=== PATIENT | male | born 1980 | race Caucasian/White ===

== ENCOUNTER 2020-06-27 18:07 | Emergency (ER) | payer MEDICARE, SELFPAY | END 2020-06-27 22:16 | disposition left against medical advice (07) | PROVIDERS: Emergency Provider Emergency Medicine | DX: R10.9 Unspecified abdominal pain (principal); K59.00 Constipation, unspecified | CPT/HCPCS: 99281 ==

== ENCOUNTER → 2020-11-09 15:30 | Outpatient (BNVA) | payer MEDICARE, SELFPAY | PROVIDERS: PCP Internal Medicine; Visit Provider Surgery | DX: K43.2 Incisional hernia without obstruction or gangrene (principal); Z79.899 Other long term (current) drug therapy | CPT/HCPCS: 99212 ==

== ENCOUNTER 2020-11-15 15:15 | Outpatient (REF) | payer MEDICARE, SELFPAY ==
--- NOTE | ~2020-11-15 | CT_ITS ---
EXAMINATION: CT ABDOMEN AND PELVIS WITHOUT CONTRAST CLINICAL INFORMATION: Incisional hernia. COMPARISON: Multiple priors, most recent CT abdomen/pelvis dated 02/15/2020 TECHNIQUE: Multidetector volumetric imaging was performed from the superior aspect of the liver through the pubic symphysis. Sagittal and coronal reformatted images were obtained on the technologist's workstation. This CT examination was performed using dose optimization techniques as appropriate, variously including the following: *Automated exposure control *Adjustment of mA and/or kV according to patient size (this includes techniques or standardized protocols for targeted exams where dose is matched to indication/reason for exam; i.e. extremities or head) *Use of iterative reconstruction technique DLP: 612 mGy-cm FINDINGS: LUNG BASES: The visualized lung bases are unremarkable. LIVER, GALLBLADDER, AND BILIARY TREE: The liver is normal in size, shape, and attenuation. No focal hepatic lesion or biliary ductal dilatation is present. The gallbladder is nondistended with no evidence of radiopaque gallstones, gallbladder wall thickening, or obvious pericholecystic inflammatory changes. PANCREAS: Unremarkable. SPLEEN: Unremarkable. ADRENAL GLANDS: Unremarkable. KIDNEYS AND URETERS: The kidneys are normal in size, shape, and attenuation. No hydronephrosis, hydroureter, or calculi seen. No perinephric stranding. BLADDER: Nondistended and unremarkable. GASTROINTESTINAL TRACT: Redemonstration of a rectosigmoid anastomosis with prominent stool adjacent to the anastomosis, unchanged. The remaining sigmoid colon and rectum is nondistended with mild wall prominence, likely due to underdistention. No significant fat stranding. An early infectious or inflammatory process is thought less likely, however, cannot be entirely excluded. Unremarkable appendix. PERITONEAL CAVITY: No intra-abdominal free air or free fluid. No intra-abdominal mass or organized fluid collection/abscess formation. ABDOMINAL WALL: Postsurgical changes redemonstrated along the left abdominal wall consistent with prior hernia repair. Redemonstration of a small, fat-containing hernia to the left of midline in the supraumbilical region with a neck measuring approximately 0.8 cm in ML dimension, similar when compared to the prior examination. No associated bowel loops or inflammatory/ischemic change. Inferior and to the left of the umbilicus, there is redemonstration of a hernia with a neck measuring 4.2 cm in ML dimension (previously 3.2 cm). The hernia contains nonobstructed small bowel loops. No evidence of inflammation or ischemia. Along the inferolateral aspect of the left abdominal wall, there is a spigelian hernia with a neck measuring up to 5.2 cm in ML dimension (previously 3.5 cm). The hernia is again noted to contain nonobstructed loops of small bowel. No associated inflammatory/ischemic change. LYMPH NODES: Normal. VASCULAR: Unremarkable. PELVIC VISCERA: The prostate and seminal vesicles are unremarkable. OSSEOUS STRUCTURES: Unremarkable. CT/CT abdomen pelvis wo con IMPRESSION: 1. Redemonstration of postsurgical changes along the left abdominal wall consistent with prior hernia repair. Large left paramedian hernia just inferior to the umbilicus again noted, increased in size when compared to the prior examination. Additionally, a more inferolateral spigelian hernia is redemonstrated, increased in size when compared to the prior examination. The hernias are again noted to contain nonobstructed small bowel loops. No associated inflammatory or ischemic change. 2. Additional small, fat-containing hernia just superior and to the left of the umbilicus, similar when compared to the prior examination. No associated bowel loops or infectious/ischemic change. 3. Redemonstration of a rectosigmoid anastomosis with prominent stool adjacent to the anastomosis, unchanged. The rectum and sigmoid are nondistended with circumferential wall prominence, likely due to underdistention. An early infectious or inflammatory process is thought less likely, however, cannot be entirely excluded.
== END 2020-11-15 15:16 | disposition home or self-care (01) ==
LOC: HO.CT 15:15
PROVIDERS: Visit Provider Surgery
DX: K43.2 Incisional hernia without obstruction or gangrene (principal)
CPT/HCPCS: 74176

== ENCOUNTER 2020-11-21 07:14 | Inpatient (IN) | payer MEDICARE, MEDICAID, SELFPAY ==
--- NOTE | 2020-11-20 10:38 | HO.ANESPROP2 ---
Documented by User: Funmilayo Holder 11/20/20 10:40 HPI - Anesthesia Eval Consult details Narrative: 40yo M for Multiple Incisional Hernia Repairs with Mesh methadone daily PMFSH Active Problems Active Problems: All Active Problems (Updated 11/09/20 @ 16:18 by Obed Granado MD) Incisional hernia (Acute) Past Medical History Medical History Anxiety GERD (gastroesophageal reflux disease) Incisional hernia Smoker Family History Family History Father Lung cancer Mother Hypertension Surgical History Surgical History History of colostomy (2006) History of colostomy reversal (2010) History of hernia repair (2008) History of hernia surgery History of incisional hernia repair (10/2018) History of rectal abscess (2006) History of rectal surgery Social History Social History Alcohol intake: never Patient Tobacco Use Status: Current everyday Tobacco user Tobacco use type: Cigarette Cigarette Packs Per Day: 1 Cigarettes Per Day: 20.0 Use of substances other than those prescribed or required for medical reasons: Yes Substance Use Frequency: Weekly Are you DNR?: No Advance Directives: No Advance Directives Information Provided: No Meds Allergies Allergy/AdvReac Type Severity Reaction Status Date / Time naproxen [NAPROXEN] AdvReac Unknown NAUSEA Verified 11/21/20 07:42 From ULTRAM AdvReac Unknown NAUSEA & Uncoded 03/02/20 17:07 VOMITING; UNCONTROLLABLE SHAKES Home Medications Medication Instructions Recorded Confirmed Last Taken Type methadone 10 mg tablet 80 mg PO DAILY tab 11/09/20 11/10/20 Unknown History Exam Exam Date and Time: November 20, 2020 1038 Assessment and Plan Assessment Anesthesia Assessment: Chart Reviewed Documented by User: Sharonda Davila 11/21/20 09:25 PMFSH Past Medical History Medical History Anxiety GERD (gastroesophageal reflux disease) Incisional hernia Smoker Family History Family History Father Lung cancer Mother Hypertension Surgical History Surgical History History of colostomy (2006) History of colostomy reversal (2010) History of hernia repair (2008) History of hernia surgery History of incisional hernia repair (10/2018) History of rectal abscess (2006) History of rectal surgery Social History Social History Alcohol intake: never Patient Tobacco Use Status: Current everyday Tobacco user Tobacco use type: Cigarette Cigarette Packs Per Day: 1 Cigarettes Per Day: 20.0 Use of substances other than those prescribed or required for medical reasons: Yes Substance Use Frequency: Weekly Are you DNR?: No Advance Directives: No Advance Directives Information Provided: No Meds Allergies Allergy/AdvReac Type Severity Reaction Status Date / Time naproxen [NAPROXEN] AdvReac Unknown NAUSEA Verified 11/21/20 07:42 From ULTRAM AdvReac Unknown NAUSEA & Uncoded 03/02/20 17:07 VOMITING; UNCONTROLLABLE SHAKES Home Medications Medication Instructions Recorded Confirmed Last Taken Type methadone 10 mg tablet 80 mg PO DAILY tab 11/09/20 11/10/20 Unknown History Exam Airway Mallampati Class: III TM Dist: >3cm Neck ROM: Limited Denture: Upper and Lower Assessment and Plan Assessment Anesthesia Assessment: Anesthesia Plan Discussed and Chart Reviewed Final Anesthetic Review NPO: Yes ASA Class: II Final Preanesthetic Review: No Changes in Pt Med Stat, Meds/Allgs Chart Reviewed, Consent Obtained/Reviewed and Anes Risks/Benef Reviewed Patient Risk: Intermediate Procedure Risk: Intermediate Assessment/Block/Sedation in SS: Assess/Block/Sedation-SS Anesthetic Plan Anesthetic Plan: GA Disposition: Standard PACU
[2020-11-21] VITALS (27 sets, daily range): BP systolic 98–163; BP diastolic 56–85; PULSE 49–77; RESP 16–20; TEMP 36.4–36.8; O2SAT 91–99; BMI 32.6
[2020-11-21 07:40] LABS: Hematocrit 42.7 % (42-52); Mean Corpuscular HGB Conc 32.8 g/dl (31.0-36.0); Mean Corpuscular Hemoglobin 29.4 pg (27.0-33.0); Mean Corpuscular Volume 89.5 fL (80-98); Mean Platelet Volume 9.3 fL (9.4-12.4); Platelet Count 290 X10*3/uL (160-400); Red Blood Count 4.77 X10*6/uL (4.60-5.80); Red Cell Distribution Width 12.8 % (11.0-16.0); White Blood Count 9.6 X10*3/uL (4.8-10.8)
[2020-11-21] MEDS: Lactated Ringers 1,000 ML 100 ML IVCONT (08:02)
[2020-11-21 08:05] LABS: Anion Gap 11 (12-20); Blood Urea Nitrogen 9 mg/dL (9-16); Calcium 9.1 mg/dL (8.4-10.2); Carbon Dioxide 28 mmol/L (22-29); Chloride 105 mmol/L (96-108); Creatinine Clr Calc Pharmacy 141.8; Estimated Glomerular Filt Rate > 60; Glucose Fasting 104 mg/dL (60-99); Potassium 4.5 mmol/L (3.3-5.1); Sodium 139 mmol/L (135-145)
--- NOTE | 2020-11-21 08:32 | MHC.SHP ---
Pre-Procedural Eval Section B Chief Complaint: S/P MULTIPLE INCISIONAL HERNIA REPAIRS W/MESH Allergies: Allergies Allergy/AdvReac Type Severity Reaction Status Date / Time naproxen [NAPROXEN] AdvReac Unknown NAUSEA Verified 11/21/20 07:42 From ULTRAM AdvReac Unknown NAUSEA & Uncoded 03/02/20 17:07 VOMITING; UNCONTROLLABLE SHAKES Plan I have reviewed the history and physical and performed a pertinent physical examination on my patient. No changes have occurred unless specified.
--- NOTE | 2020-11-21 10:58 | PM.OP ---
Brief Operative Note Date of Service: 11/21/20 Pre-op diagnosis: multiple hernias, abdominal wall Post-op diagnosis: same (incisional hernia, supraumbilical hernia) Procedure: repair of incisional hernia with large Ventralex mesh, repair of supraumbilical hernia Implants: mesh Surgeon: Obed Granado MD Anesthesia: GETA Was an General Production Laborer used for this Procedure?: No Estimated blood loss (mL): 50 Pathology: other (sac) Condition: stable Disposition: PACU
--- NOTE | 2020-11-21 10:59 | W.PM.OPN ---
Operative Note Operative Note Date of Service: 11/21/20 Narrative: Preop diagnosis: Multiple wall hernias Postop diagnosis: Incisional hernia and supraumbilical hernia Procedure: Repair of incisional hernia with large Ventralex mesh, repair of supraumbilical hernia, extensive lysis of adhesions Surgeon: Obed Granado MD No conventions assistant The patient is a 30-year-old male who had previously undergone a diverting loop colostomy for necrotizing fascitis of the perianal area in the distant past. He developed a hernia on the stoma site which had been repaired with a before. He now has another hernia on the laparotomy incision just to the left of the midline. His CAT scan had shown this hernia on the midline with loops of small bowel, along with a supraumbilical hernia that was fat containing. There seemed to be a hernia as well on the old colostomy site but review of this had shown that the fascia appeared intact. Physical exam showed the hernia just above the midline but I could not palpate for the hernia on the old colostomy site. In view of his symptoms regards to the hernia on midline, he wanted to proceed for repair. He understood the technique of repair with mesh and was aware of the risks, benefits and alternatives. He was brought so the operating room and placed supine on table under general anesthesia via endotracheal tube. A Brito catheter was inserted. The abdomen was prepped and draped in the usual sterile fashion. A surgical time-out was done. The patient received cefazolin 2 g IV preoperatively. I made a transverse incision on the skin overlying the large hernia just to the left of the midline using a blade number 10 and this was carried down through the full-thickness of skin and subcutaneous fat with electrocautery. I continued to gently dissect through the thick subcutaneous fat until I was able to visualize what appeared to be hernia sac. The hernia sac was gently dissected off of subcutaneous layer using electrocautery as well as Metzenbaum scissors down to the fascia. Eventually, I was able to see the fascial defect. Part of the hernia sac and was sent as specimen. I continued to define the hernia but there was note of large amounts of adhesions with small bowel loops on the fascial edge inferiorly. I had to carefully dissect this with Metzenbaum scissors. Some bowel loops are also markedly adherent to the sac and we had to do a lot of dissection as well to carefully release this. Eventually was able to clearly define the fascial defect which measured about 4 cm in diameter. I was able to grasp this gently with Saul clamps. I viewed the underside of the fascial defect. I did do some lysis of adhesions of some bowel loops on the underside. Eventually I was able to clearly have a good dissection with wide margins without adherent bowel loops. I palpated for the other side laterally where the CAT scan is suggested a hernia on the old stoma site. However, palpation revealed no hernia and I was able to palpate from the underside as well. There was some thinning suggestive of diastasis but there was no discrete defect. The previous repair of his colostomy site laterally was intact as well as I could not clearly feel any fascial defect. There were no bowel loops that could be felt as well. I carefully undermined the subcutaneous layer to make sure that we were examining the correct area of the fascia laterally. Furthermore I was viewing the images on the CT scan in real-time to be able to colon for that we were on the right area and could see that even on the CT scan, the fascia appeared intact. I therefore at this point felt that we did not need to open up the fascia or do further repair of this area on the old stoma site laterally. I positioned a large Ventralex mesh under the fascial defect on the incisional hernia just off of the midline to the left. This was flattened and I used transfascial sutures with Prolene 2-0 on the Prolene side of the mesh on 4 quadrants. Once these were positioned, I tightened all 4 transfascial sutures to there flatten the mesh. I then proceeded to close the fascia with Maxon 1 running stitch making sure that we were not catching bowel loops within this stitches. I then proceeded to irrigate. I reapposed the thick subcutaneous layer with Dexon 3-0 interrupted sutures. Skin closure was achieved with skin musa. I then proceeded to repair the hernia on the supraumbilical area. I made a short incision on the skin using a blade 15. This was carried down through the full-thickness of skin and subcutaneous fat. I then dissected subcutaneously until was able to clearly define the fascia. I proceeded to palpate and visualize periodically until was able to visualize the entire hernia. This was fat containing. I sharply dissected this off of the fascial layer until was able to clearly reduce this. The hernial defect on the supraumbilical area was about 1 cm in size. Therefore I closed this with a figure-eight Maxon 1 stitch. I irrigated again. I closed this incision with skin musa. I infiltrated all incisions with Marcaine 0.5% for postop analgesia. Dressings were applied and the procedure was completed The patient tolerated the procedure well. There were no complications noted. Initial and final counts of sponges and instruments were correct. Estimated blood loss about 50 cc The patient was extubated without difficulty and transferred to the recovery room with stable vital signs.
[2020-11-21] MEDS: HYDROmorphone HCl 0.5 MG/0.5 ML SYRINGE IVPUSH ×5 (11:10→22:37)
[2020-11-21 11:28] LABS: COVID-19 Test Negative (Negative); IDNOW Serial# 9DD0AD1C
[2020-11-21] MEDS: oxyCODONE HCl Immed Release 5 MG TABLET 10 MG PO (12:00)
[2020-11-21] MEDS: fentaNYL citrate/PF 100 MCG/2 ML VIAL 50 MCG IVPUSH ×2 (14:15→15:04)
--- NOTE | 2020-11-21 16:39 | PM.EVENT ---
Event Note Date of Service: 11/21/20 Event Note: seen postop underwent repair of multiple hernias earlier looks comfortable he says he has good pain control stable VS abd soft cont. pain mgt diet as tolerated plan lexus Brito in am updated
[2020-11-21] MEDS: Lactated Ringers 1,000 ML 80 ML IVCONT (16:47)
[2020-11-21] MEDS: 0.9 % Sodium Chloride Flush 3 ML SYRINGE IVFLUSH (16:47)
--- NOTE | 2020-11-21 17:31 | PC.NURSE ---
patient stated that he takes Methadone 80 mg by mouth daily .Pt reported that he goes to [facility] [place]. Pt stated that he received the dose today.Pt also reported that he uses the heroin few times per mouth ,thalast time he used it was 3 days ago
[2020-11-22] MEDS: HYDROmorphone HCl 0.5 MG/0.5 ML SYRINGE IVPUSH ×4 (03:15→13:25)
[2020-11-22] MEDS: Lactated Ringers 1,000 ML 100 ML IVCONT (03:37)
[2020-11-22 07:40] VITALS: BP 105/59; PULSE 63; RESP 15; TEMP 36.5; O2SAT 94
[2020-11-22] MEDS: 0.9 % Sodium Chloride Flush 3 ML SYRINGE IVFLUSH (09:22)
[2020-11-22 09:25] VITALS: O2SAT 95
--- NOTE | 2020-11-22 10:13 | MHC.CM.PN ---
NURSE SWEATER DESIGNER NOTE ELECTRONIC MEDICAL RECORD REVIVED MET WITH PATIENT AND WITH HIS PERMISSION HIS FINANCE REMAINED PRESENT IN THE ROOM DURING THIS ASSESSMENT , .PATIENT REPORTS THAT HE LIVES WITH HIS FINANCE IN [facility] , HE IS CURRENTLY UNEMPLOYED AND HAS BEEN ASSIGNED DR DEVIN WILSON HIS PCP BUT HAS NOT SEEN HIM IN OVER A YEAR AND IS INTERESTED IN OBTAINING A NEW PCP , THE [facility] LISTING GIVEN TO HIM, PATIENT REPORTS HE HAS A HEALTH CARE PROXY NAMING HIS FINANCE HIS AGENT , REQUESTED A COPY BE MAILED INTO THE [facility] TO HAVE ON FILE , PATIENT REPORTS THAT HE USES HEROIN [facility]ALY, AND ATTENDS THE [facility] FOR HIS METHADONE INDEPENDENT IN ALL ADLS AND MOBILITY DISCHARGE PLAN HOME SERVICES PCP DR GUTIERREZ INFO GIVEN ON OBTIAING A NEW PCP [facility] LISTING OF DOCTORS NAMES, ADDRESS PHONE NUMBERS. SELF RESUMPTION OF HIS METHADONE CLINIC AT THE [address] HE WILL CONTINUE TO WORK OUT ON GETTING A NEW THEARPUIST FOR MENTAL HEALTH COUNSELING OFFERED REFERRAL TO CARE TEAM AND DECLINED TRANSPORTATION FAMILY MEDICARE IMM COMPLETED
--- NOTE | 2020-11-22 10:34 | MHC.RECOVSUP ---
? Reason for consult:Continuity of care o Current location: [facility]- o Identified substance use concern: Heroin - Support ? Intervention: o MAT started or to be started o Community resources provided o Harm reduction discussion ? Plan: o Patient to follow up with [facility] after discharge ? Additional information: Patient to be discharged today, patient already using MAR in the form of methadone, referred patient to [facility] and gave him community resources.
--- NOTE | 2020-11-22 10:48 | PM.PNGS ---
Subjective Subjective Date of Service: 11/22/20 Interval history: feels great good pain control tolerating diet good GI function Physical Exam Vital Signs: Vital Signs: Last Vital Signs Temp 97.7 F 11/22/20 07:40 Pulse 63 11/22/20 07:40 Resp 15 11/22/20 07:40 BP 105/59 L 11/22/20 07:40 Pulse Ox 95 11/22/20 09:25 Body Mass Index 32.6 Const: General: comfortable and no acute distress Resp: Effort & Inspection: normal respiratory effort GI: Other: dressings dry, some ecchymoses Palpation (GI): Soft to palpation, not firm, no guarding and not rigid Progress Note: A&P Assessment and plan (1) Incisional hernia: Status: Acute Assessment and Plan: S/P repair with mesh x1, repair w/o mesh x1 doing well looks well says he is ready to be discharged given postop instructions pain meds continue methadone Fall Risk Details Current Medications: Current Medications Generic Name Dose Route Start Last Admin Trade Name Amy PRN Reason Stop Dose Admin Albuterol Sulfate 2.5 mg 11/21/20 07:13 Albuterol Sulfate (0.083%) 2.5 Mg/3 Ml Vial.Neb INHALE ONCE PRN Shortness of Breath/Wheezing Fentanyl 50 mcg 11/21/20 09:25 11/21/20 15:04 Fentanyl Citrate/Pf 100 Mcg/2 Ml Vial IVPUSH 50 mcg Q5M PRN Administration Pain, Severe (Pain Scale 7-10) Hydromorphone HCl 0.5 mg 11/21/20 16:23 11/22/20 09:22 Hydromorphone Hcl 0.5 Mg/0.5 Ml Syringe IVPUSH 0.5 mg Q3H PRN Administration Pain, Severe (Pain Scale 7-10) Lactated Ringer's 1,000 mls @ 80 mls/hr 11/21/20 16:23 11/22/20 05:49 Lr IVCONT Not Given .[id number] BRITTANIE Ibuprofen 600 mg 11/21/20 16:23 Ibuprofen 600 Mg Tablet PO Q6H PRN Pain, Moderate (Pain Scale 4-6 Methadone HCl 80 mg 11/22/20 09:00 Methadone Hcl 1 Mg/0.1 Ml Oral.Conc PO DAILY BRITTANIE Ondansetron HCl 4 mg 11/21/20 09:25 Ondansetron Hcl 4 Mg/2 Ml Vial IVPUSH ONCE PRN Nausea and Vomiting Ondansetron HCl 4 mg 11/21/20 16:23 Ondansetron Hcl 4 Mg/2 Ml Vial IVPUSH Q8H PRN Nausea Sodium Chloride 3 ml 11/21/20 16:23 11/22/20 09:22 0.9 % Sodium Chloride Flush 3 Ml Syringe IVFLUSH 3 ml QSHIFT [facility] Administration Time Spent With Patient Time: Total time spent is greater than 50% in coordination of care (as documented) at patient's floor/unit and/or counseling patient: Time with patient: 15 - 24 minutes Procedures Date of Service Date of Service: 11/22/20
--- NOTE | 2020-11-22 12:24 | MHC.CM.PN ---
NURSE NEAR EAST ARCHEOLOGY PROFESSOR NOTE ELECTRONIC MEDICAL RECORD REVIEWED, MET WITH PATIENT HE IS AWARE THAT HE WILL BE D/C HOME NO SERVICES DISCHARGE PLAN HOME NO SERVICES TRANSPORTATION FAMILY PCP FOLLOW UP WELL SURTRGICAL FOLLOW UP SELF RESUMTPION OF HIS METHADONE PROGRAM
--- NOTE | 2020-11-22 14:22 | HO.POSTANES ---
Post Anesthesia Evaluation Post Anesthesia Evaluation Vital Signs: Vital Signs Temp Pulse Resp BP Pulse Ox 11/22/20 09:25 95 11/22/20 07:40 97.7 F 63 15 105/59 L 94 Anesthesia: General Mental Status: Awake Pain Control: Satisfactory Nausea/Vomiting: None Hydration: Adequate Anesthesia-Related Issues: No Anes. Related Issues
--- NOTE | 2020-11-24 14:37 | P.DS_ITS ---
DS: Providers Provider Date of Service: 11/22/20 Date of admission: 11/21/20 07:14 Primary care physician: Kristin Ryder MD DS: Diagnosis Discharge Diagnosis (1) Incisional hernia: Status: Acute Problem details: 40-year-old male who underwent repair of incisional hernias on 11/21/2020. He had a large hernia repaired just left of the midline using a large V patch mesh. A small hernia was repaired just above the umbilicus. He tolerated procedure well. Was [facility] after surgery. He was on clear liquids which was advanced that same day. A Brito catheter in place because of his anticipated pain. He was on the loaded for pain as well as Ofirmev. It appeared that he had good pain control. He tolerated his diet well. His Brito catheter was removed on the 1st postop day. He continued to have good pain control so was discharged that same day. He was given wound care instructions as well. He was described Dilaudid p.o. and was instructed to continue with his methadone. DS: Medications Discharge Medications Home Medications: Home Medications Medication Instructions Recorded Confirmed methadone 10 mg tablet 80 mg PO DAILY tab 11/09/20 11/10/20 Previous Rx's Medication Instructions Recorded oxycodone-acetaminophen [Percocet] 1 - 2 tab PO Q4-6H PRN #30 tab 11/22/20 DS: Summary Time Spent with Patient Time attestation: Total time spent providing and/or coordinating discharge services: Discharge coordination time: Less than 30 minutes Quality: Stroke Does the patient have a stroke diagnosis?: No Physical Exam Vital Signs: Vital Signs: Last Vital Signs Temp 97.7 F 11/22/20 07:40 Pulse 63 11/22/20 07:40 Resp 15 11/22/20 07:40 BP 105/59 L 11/22/20 07:40 Pulse Ox 95 11/22/20 09:25 Body Mass Index 32.6 Const: General: comfortable and no acute distress Orientation/consciousness: patient oriented x3 Neck: Neck: Yes no lymphadenopathy Resp: Auscultation: clear to auscultation bilaterally Cardio: Rhythm: regular rhythm GI: Other: Incisions clean and dry Palpation (GI): Soft to palpation, nontender and no guarding Neuro: General: patient oriented x3 DS: Data Data Completed and Pending Completed studies during hospitalization [Text1]: Pending at discharge 11/21/20 10:17 Surgical [PTH] Routine Procedures Release Peritoneum, Open Approach (11/21/20) Repair Abdominal Wall, Open Approach (11/21/20) Supplement Abdominal Wall with Synthetic Substitute, Open Approach (11/21/20) Discharge Plan Discharge Patient Disposition: Home, Self-Care Discharge Diagnosis: multiple hernias Referrals: Kristin Ryder MD [Primary Care Provider] - 1 Week Obed Granado MD [Physician] - 1 Week Discharge Medications: New oxycodone-acetaminophen [Percocet] 5-325 mg tablet 1 - 2 tab PO Q4-6H PRN (Reason: pain) Qty: 30 RF: 0 Continued methadone 10 mg tablet 80 mg PO DAILY RF: 0 Discharge Orders: Discharge Order (Routine); Ordered 11/22/20 Ordered By: Obed Granado Activity on Discharge: No heavy lifting Stand Alone Forms: Patient Portal Discharge page Activity Restrictions/Additional Instructions: If the incision area is tender, you may apply an ice pack for short intervals (No more than 20 minutes on, followed by at least 20 minutes off). Do not apply heat. Do not use creams, lotions, or topical antibiotics unless instructed to do so by your surgeon. These can cause infection or allergic reaction. OK to shower OK to change dressings with dry gauze daily No lifting more than 15 lb No strenuous activities Call the office for follow-up in 2 weeks - with Dr. Granado Call Your Doctor If: -Your temperature exceeds 101.5? F -You experience excessive pain or swelling -You have an unexpected reaction to medication -You have excessive bleeding -You experience continued vomiting/nausea -Your incision begins to separate -Your incision shows signs of infection such as increased redness, swelling, excessive pain, drainage (light blood or clear fluid is normal) or heat Care Plan Goals: pain management Health Concerns: is on Methadone for chronic use of narcotics Plan of Treatment: pain control no lifting Assessment: doing well postop Discharge Date/Time: 11/22/20 14:30
== END 2020-11-22 14:30 | disposition home or self-care (01) | DRG 336 ==
LOC: HO.SSSA 07:23 → HO.S3 15:24
PROVIDERS: Nurse Practitioner; Admitting Provider Surgery; PCP Internal Medicine; Visit Provider Surgery
PROC: 0DNW0ZZ Release Peritoneum, Open Approach (ICD-10-PCS; CPT 49565; principal; 2020-11-21 08:30)
DX: K43.2 Incisional hernia without obstruction or gangrene (principal); F11.20 Opioid dependence, uncomplicated; K66.0 Peritoneal adhesions (postprocedural) (postinfection); K43.9 Ventral hernia without obstruction or gangrene; K21.9 Gastro-esophageal reflux disease without esophagitis; Z20.822 Contact with and (suspected) exposure to COVID-19; F41.9 Anxiety disorder, unspecified; Z88.5 Allergy status to narcotic agent; Z88.6 Allergy status to analgesic agent
CPT/HCPCS: 49565; 49568; 49560; 36415; 80048; 85027; 87635; 88302; 99024; C1781; J0131; J0690; J1100; J1170; J1885; J2250; J2405; J3010

== ENCOUNTER → 2020-12-04 10:32 | Outpatient (BNVA) | payer MEDICARE, SELFPAY | PROVIDERS: PCP Internal Medicine; Referring Provider Internal Medicine; Visit Provider Surgery | DX: Z48.815 Encounter for surgical aftercare following surgery on the digestive system (principal); Z87.19 Personal history of other diseases of the digestive system | CPT/HCPCS: 99212 ==

== ENCOUNTER → 2021-01-15 15:11 | Outpatient (BNVA) | payer MEDICARE, SELFPAY | PROVIDERS: PCP Internal Medicine; Visit Provider Surgery | DX: K43.2 Incisional hernia without obstruction or gangrene (principal) | CPT/HCPCS: 99212 ==

== ENCOUNTER 2021-09-19 16:28 | Emergency (ER) | payer MEDICARE, SELFPAY ==
--- NOTE | ~2021-09-19 | XR_ITS ---
EXAMINATION: XR KNEE, RIGHT CLINICAL INFORMATION: Knee injury COMPARISON: Right knee 06/04/2012 TECHNIQUE: Four views of the right knee. FINDINGS: Since 2012, there is developed some minimal degenerative change with some mild calcification adjacent to the lateral femoral condyle along with some posterior patellar osteophytes and a subchondral posterior patellar cyst. Joint spaces are maintained. No significant effusion is seen. XR/XR knee RT 3V IMPRESSION: No acute evidence of any injury. Minimal degenerative change.
--- NOTE | 2021-09-19 18:00 | ED.LOWEXIN ---
HPI - Extremity Injury (Lower) General Chief Complaint: Extremity Injury, Lower Stated Complaint: knee pain/work INJ Time Seen by Provider: 09/19/21 17:02 History of Present Illness HPI Narrative: Patient complains of right knee pain and swelling after twisting it at work today, no other injury Related Data Home Medications Medication Instructions Recorded Confirmed methadone 10 mg tablet 80 mg PO DAILY tab 11/09/20 01/31/21 Previous Rx's Medication Instructions Recorded oxycodone-acetaminophen 5 mg-325 1 - 2 tab PO Q4-6H PRN #30 tab 11/22/20 mg tablet (Percocet) Allergies Allergy/AdvReac Type Severity Reaction Status Date / Time naproxen [NAPROXEN] AdvReac Unknown NAUSEA Verified 11/21/20 07:42 From ULTRAM AdvReac Unknown NAUSEA & Uncoded 03/02/20 17:07 VOMITING; UNCONTROLLABLE SHAKES Review of Systems Review of Systems: Positive for right knee pain and swelling Negatives are no headache no loss of consciousness no neck pain no numbness weakness or tingling no chest pain no back pain no other extremity pains no laceration Yes all other systems are reviewed and are negative PMFSH Past Medical History Source: nursing notes reviewed Medical History Anxiety GERD (gastroesophageal reflux disease) Incisional hernia Smoker Surgical History History of colostomy (2006) History of colostomy reversal (2010) History of hernia repair (2008) History of hernia surgery History of incisional hernia repair (10/2018) History of rectal abscess (2006) History of rectal surgery Family History Family History Father Lung cancer Mother Hypertension Social History Social History Household Members: Spouse Housing: Apartment Alcohol intake: never Patient Tobacco Use Status: Current everyday Tobacco user Tobacco use type: Cigarette Cigarette Packs Per Day: 1 Cigarettes Per Day: 20 Substance Use Type: Heroin Advance Directives: No Advance Directives Information Provided: No service: No Current occupational status: unemployed Physical Exam Vital Signs: General appearance no acute distress Head is normocephalic atraumatic The neck is supple nontender The back full range of motion x4 Respiratory no distress Extremities the right knee is tender and swollen with tenderness right below the patella but he is able to do a straight leg raise and there is no defect in the tendon below the patella, the worse tenderness is the lateral knee, there is some mild soft tissue swelling but no effusion is obvious no redness no warmth no laceration no obvious ligamentous laxity It hurts to bear weight so he is not bearing weight Other extremities normal Neuro no focal motor or sensory deficits Course Course Course Narrative: Right knee x-ray was negative Patient with likely sprained knee is given an Donald bandage crutches work note and will follow with orthopedics Discharge Plan Discharge Clinical Impression: Right knee sprain Patient Disposition: Home, Self-Care Additional Instructions: X-ray of the right knee was normal The twisting injury of your knee is likely a sprain You can apply ice, elevate the leg Donald bandage as needed, best plan is follow with [facility] for work related injury and they will refer you to an orthopedist if needed You could use Tylenol available [id number] as needed Return any time any concerns Prescriptions: No Action oxycodone-acetaminophen [Percocet] 5-325 mg tablet 1 - 2 tab PO Q4-6H PRN (Reason: pain) Qty: 30 0RF methadone 10 mg tablet 80 mg PO DAILY 0RF Referrals: [facility] [Provider Group] (Right knee injury after twisting at work) Octavio Colbert MD [Physician] - (Right knee sprain after twisting injury at work) Stand Alone Forms: Work/School Release
== END 2021-09-19 18:30 | disposition home or self-care (01) ==
PROVIDERS: Emergency Provider Emergency Medicine Emergency Medical Services; PCP Internal Medicine
DX: S83.91XA Sprain of unspecified site of right knee, initial encounter (principal); M25.561 Pain in right knee; X50.1XXA Overexertion from prolonged static or awkward postures, initial encounter; Y93.9 Activity, unspecified; Y92.9 Unspecified place or not applicable; Y99.0 Civilian activity done for income or pay; F17.210 Nicotine dependence, cigarettes, uncomplicated; Z71.6 Tobacco abuse counseling; Z79.899 Other long term (current) drug therapy
CPT/HCPCS: 73562; 99283

== ENCOUNTER 2024-12-13 09:23 | Emergency (ER) | payer MEDICAID, SELFPAY ==
--- NOTE | ~2024-12-13 | CT_ITS ---
EXAMINATION: CT ABDOMEN AND PELVIS WITH CONTRAST CLINICAL INFORMATION: Abdominal pain. Weight loss. Multiple prior surgeries. COMPARISON: November 15, 2020. TECHNIQUE: Multidetector volumetric images were obtained from the superior aspect of the liver through the pubic symphysis following administration 85 mL of Omnipaque 350 intravenous contrast. Sagittal and coronal reformatted images were obtained on the technologist's workstation. Oral contrast: Yes This CT examination was performed using dose optimization techniques as appropriate, variously including the following: *Automated exposure control *Adjustment of mA and/or kV according to patient size (this includes techniques or standardized protocols for targeted exams where dose is matched to indication/reason for exam; i.e. extremities or head) *Use of iterative reconstruction technique DLP: 373 mGy centimeter. FINDINGS: LUNG BASES: No acute airspace disease. LIVER, GALLBLADDER, AND BILIARY TREE: Liver measures 17 cm. No focal mass. Main portal veins and intrahepatic portion of the IVC are patent. No intrahepatic biliary ductal dilatation. No pericholecystic fluid collection or gallbladder wall thickening. Contracted gallbladder. Common bile duct measures 4 m. PANCREAS: No focal mass. No peripancreatic fluid collection. No main pancreatic ductal dilatation. SPLEEN: 9 cm. No focal lesion. ADRENAL GLANDS: No nodular lesions. KIDNEYS AND URETERS: No hydronephrosis. No gross renal mass. Questionable 1 mm nonobstructing calculi, bilaterally. BLADDER: Fluid-filled and collapsed. GASTROINTESTINAL TRACT: Sutures at the sigmoid colon with abundant stool. There is a questionable segmental wall thickening at the distal sigmoid colon and rectosigmoid colon junction which measures 4 cm in maximum length. Appendix is normal. No intestinal obstruction pattern. No pneumatosis intestinalis. No pneumoperitoneum. No ascites. No peripheral enhancing fluid collection in the peritoneal cavity. ABDOMINAL WALL: Multiple small fat-containing hernias, epigastric, right midline, supraumbilical. There is a nondilated, focal gas and fluid-filled herniation of a distal small bowel loops in the right midline supraumbilical wall defect. There is a nondilated the group of the small bowel loops through a anterior left lateral abdominal wall defect. Multiple metallic coils in the abdominal wall, left lateral abdomen. LYMPH NODES: No specific prominent mesenteric and retroperitoneum. VASCULAR: No aneurysm or dissection, abdominal aorta. Calcified plaques in the abdominal aorta wall and iliac arteries. PELVIC VISCERA: Not enlarged. OSSEOUS STRUCTURES: Osteopenia versus osteoporosis. Multilevel spondylosis without acute fracture or gross listhesis. CT/CT abdomen pelvis w IV con IMPRESSION: 4 cm segmental wall thickening, rectosigmoid colon. Peristalsis versus inflammatory process. Neoplasm cannot be excluded. Nonobstructing herniated small bowel loops through a left anterior lateral abdominal wall defect. Focal small subsegmental gasfield nondilated herniated small intestine lobe, supraumbilical left midline. Fleischner guidelines were followed. Electronically signed by: Ranjith Valdez MD 12/13/2024 01:42 PM EDT
[2024-12-13 09:39] VITALS: BP 121/58; PULSE 63; RESP 16; TEMP 36.6; O2SAT 96; BMI 19.4
--- NOTE | 2024-12-13 09:52 | ED.GENADULT ---
HPI - General Adult General Chief complaint: Abdominal Pain Stated complaint: nausea Time Seen by Provider: 12/13/24 09:49 Source: patient, RN notes reviewed and old records reviewed Mode of arrival: ambulatory Limitations: no limitations History of Present Illness ED Provider: [facility] narrative: Patient is a 44-year-old male with history of incisional hernia, GERD, anxiety, smoking, perirectal abscess with subsequent sepsis and rectal resection with ostomy and reversal in 2009 presenting to the emergency department with a complaint of generalized abdominal pain, nausea and 40 lb weight loss over the past 2 months even though he is still eating. Denies fevers. Denies diarrhea. States that ever since his rectal surgery he typically does not feel the urge to have a bowel movement until he has already constipated and has to use enemas and manually disimpact every time to clear his bowels. Denies any night sweats. States family has been concerned over his recent weight loss and wanted him to be evaluated. MD complaint: abdominal pain, weight loss Onset (ago): month(s) Related Data Home Medications ?Medication ?Instructions ?Recorded ?Confirmed methadone 10 mg tablet 80 mg PO DAILY 11/09/20 01/31/21 Previous Rx's ?Medication ?Instructions ?Recorded oxycodone-acetaminophen 5 mg-325 1 - 2 tab PO Q4-6H PRN pain #30 11/22/20 mg tablet (Percocet) tabs ondansetron 4 mg disintegrating 4 mg PO Q8H PRN nausea and 12/13/24 tablet vomiting #10 tabs Allergies Allergy/AdvReac Type Severity Reaction Status Date / Time naproxen (NAPROXEN) AdvReac Unknown NAUSEA Verified 12/13/24 09:40 From ULTRAM AdvReac Unknown NAUSEA & Uncoded 12/13/24 09:40 VOMITING; UNCONTROLLABLE SHAKES Review of Systems Review of Systems: As per HPI Yes all other systems are reviewed and are negative Constitutional: Constitutional: Reports as per HPI PMFSH Past Medical History Medical History Anxiety GERD (gastroesophageal reflux disease) Incisional hernia Smoker Surgical History History of colostomy (2006) History of colostomy reversal (2010) History of hernia repair (2008) History of hernia surgery History of incisional hernia repair (10/2018) History of rectal abscess (2007) History of rectal surgery Family History Family History Father Lung cancer Mother Hypertension Social History Social History Household Members: Spouse Housing: Apartment Alcohol intake: never Patient Tobacco Use Status: Current everyday Tobacco user Tobacco use type: Cigarette Cigarette Packs Per Day: 1 Cigarettes Per Day: 20 Substance Use Type: Heroin Advance Directives: No Advance Directives Information Provided: Yes Do you have a plan to hurt others: No Plan service: No Current occupational status: unemployed Physical Exam ED Vital Signs: Vital Signs - 24 hr 12/13/24 09:39 12/13/24 12:07 Temperature 98 F Pulse Rate 63 46 L Respiratory Rate 16 16 Blood Pressure 121/58 L 122/71 Pulse Oximetry 96 100 Oxygen Delivery Method Room Air Room Air BMI result Body Mass Index 19.4 Vital signs have been reviewed and appear to be correct. Blood pressure normal. Heart rate normal. Respiratory rate normal. Temperature normal. Oxygen saturation normal. Const General: cooperative, healthy appearing and no acute distress Orientation/consciousness: oriented to person, oriented to place, oriented to time and patient oriented x3 Limitations: no limitations HENMT Head: Yes normocephalic and Yes atraumatic Ears: external ears normal General nose exam: Normal external nose present Face and sinus: Yes face symmetric Mouth: oropharynx normal and moist mucous membranes Throat: Yes uvula midline Eyes Pupils: Equal, round and reactive pupils present Neck Neck: Yes normal visual inspection and Yes supple Resp Effort & Inspection: normal respiratory effort and able to speak in complete sentences Auscultation: clear to auscultation bilaterally Cardio Rate: regular rate Rhythm: regular rhythm Heart sounds: S1 normal heart sound present and S2 normal heart sound present GI Palpation (GI): Soft to palpation and Tenderness to palpation present (GI) (mild diffuse tenderness, primarily over left quadrant) Auscultation: normoactive bowel sounds General: Yes no CVA tenderness Back/Spine/Pelvis Back: no CVA tenderness Skin Other: diffuse white macules to face, extremities General skin exam: elasticity normal and turgor normal Neuro General: oriented to person, oriented to place, oriented to time, patient oriented x3, moves all extremities, no focal motor deficits and CN's II-XI intact bilaterally Cranial nerves: Yes Equal, round and reactive pupils present Cognition (Neuro): normal cognition Extrem General: Yes full ROM, Yes no pedal edema and Yes no calf tenderness Psych Mental Status: mental status grossly normal Affect: normal affect Thought process: Normal thought process present Medications Administered Discontinued Medications Generic Name Dose Route Start Last Admin Trade Name Freq PRN Reason Stop Dose Admin Diatrizoate Meglum/Diatrizoate Sod 30 ml 12/13/24 13:15 12/13/24 13:15 Diatrizoate Meglumine, Sodium 30 Ml Solution PO 12/13/24 13:16 30 ml ONCE ONE Administration Sodium Chloride 1,000 mls @ 999 mls/hr 12/13/24 13:15 12/13/24 13:14 Ns IV 12/13/24 14:15 999 mls/hr .Q1H1M BRITTANIE Administration Iohexol 100 ml 12/13/24 13:13 12/13/24 13:13 Iohexol 350 Mg/Ml 100 Ml Infus..Btl IV 12/13/24 13:14 85 ml ONCE ONE Administration Medical Decision Making Medical Decision Making MDM Narrative: Patient is a 44-year-old male with history of incisional hernia, GERD, anxiety, smoking, perirectal abscess with subsequent sepsis and rectal resection with ostomy and reversal in 2009 presenting to the emergency department with a complaint of generalized abdominal pain, nausea and 40 lb weight loss over the past 2 months even though he is still eating. On exam patient is awake, A+Ox3, VS WNL, afebrile, normal neurological exam without focal deficits, physical exam findings as above. Given reported symptoms and physical exam findings, initial differential includes but is not limited to malignancy/mass, obstruction. Labs notable for no leukocytosis, no evidence of WILLIAM, normal transaminases. CT notable for rectosigmoid wall thickening, peristalsis versus inflammatory process, neoplasm can not be excluded. My interpretation is in agreement with the radiologist's interpretation. Case discussed with attending MD, Dr. Stevens, who agrees that patient can follow up outpatient. Results discussed with patient and all questions answered. Will refer to General surgery for further evaluation and management. Patient stating he does not currently have a PCP, patient provided with list of area primary care providers as well as information for financial counseling as he cites insurance issues as a barrier. Patient noted to be bradycardic to the 40's while in the ED, has history of same on prior visits. Will send prescription for Zofran for nausea. Return precautions discussed. Patient verbalized understanding of and agreement with plan. Differential Diagnosis Differential Diagnoses: The differential diagnosis associated with the presentation includes As per [facility] Admission/Observation Consideration of admission/observation: Escalation of care including admission/observation considered Patient would have been admitted to the hospital had their work up had any findings where hospital admission was appropriate and their clinical presentation warranted hospital admission. Lab Data [facility] Lab Attestation statement: I reviewed the patient's lab results. as per [facility] 12/13/24 10:14 12/13/24 10:44 Labs: Lab Results 12/13/24 12/13/24 12/13/24 Range/Units 10:14 10:44 12:17 WBC 6.0 (4.8-10.8) X10*3/uL RBC 4.11 L (4.60-5.80) X10*6/uL Hgb 13.0 L (14.0-18.0) g/dl Hct 39.0 L (42.0-52.0) % MCV 94.9 (80.0-98.0) fL MCH 31.6 (27.0-33.0) pg MCHC 33.3 (31.0-36.0) g/dl RDW 13.6 (11.0-16.0) % Plt Count 263 (160-400) X10*3/uL MPV 9.6 (9.4-12.4) fL Immature Gran % (Auto) 0.3 (0.0-0.4) % Neut % (Auto) 58.0 (45-73) % Lymph % (Auto) 30.3 (20-40) % [place] % (Auto) 6.4 (2-11) % Eos % (Auto) 4.0 (0-4) % Baso % (Auto) 1.0 (0-2) % Lymph # (Auto) 1.8 (1.2-4.9) X10*3/uL [place] # (Auto) 0.4 (0.1-1.2) X10*3/uL Eos # (Auto) 0.2 (0.0-0.4) X10*3/uL Baso # (Auto) 0.1 (0.0-0.2) X10*3/uL Abs Immat Gran (auto) 0.02 (0.00-0.03) X10*3/uL Absolute Neuts (auto) 3.5 (2.0-8.3) x10*3/uL Absolute Nucleated RBC 0.000 (0.0-0.012) X10*3/uL Nucleated RBC % (auto) 0.0 (0.0-0.2) /100WBC PT 12.4 (10.9-12.4) SEC INR 1.1 (0.9-1.1) Sodium 139 (135-145) mmol/L Potassium 3.9 (3.3-5.1) mmol/L Chloride 104 (96-108) mmol/L Carbon Dioxide 27 (22-29) mmol/L Anion Gap 12 (12-20) BUN 6 L (9-16) mg/dL Creatinine 0.88 (0.5-1.4) mg/dL Estim Creat Clear Calc 89.2 Estimated GFR > 60 Random Glucose 117 H (60-115) mg/dL Calcium 9.0 (8.4-10.2) mg/dL Magnesium 1.9 (1.6-2.6) mg/dL Total Bilirubin 0.5 (0.0-1.0) mg/dL AST 17 (5-37) U/L ALT 7 (0-40) U/L Alkaline Phosphatase 72 (39-117) U/L Total Protein 6.9 (6.5-8.0) g/dL Albumin 3.9 (3.5-5.0) g/dL Triglycerides 55 (<150) mg/dL Lipase 13 (8-78) U/L Urine Color Yellow Urine Appearance Clear Urine pH 7.5 (5.0-9.0) Ur Specific [place] <= 1.005 (1.005-1.025) Urine Protein Negative (Neg-Trace) mg/dL Urine Glucose (UA) Negative (Negative) mg/dL Urine Ketones Negative (Negative) mg/dL Urine Blood Negative (Negative) Urine Nitrite Negative (Negative) Ur Leukocyte Esterase Negative (Negative) Independent Interpretation I performed an independent interpretation of an: CT Scan Interpretation: CT notable for rectosigmoid wall thickening, peristalsis versus inflammatory process, neoplasm can not be excluded. Radiology Impression Discussion of test interpretation with radiology: I have reviewed the radiologist's reading. Radiologist Impression: CT/CT abdomen pelvis w IV con IMPRESSION: 4 cm segmental wall thickening, rectosigmoid colon. Peristalsis versus inflammatory process. Neoplasm cannot be excluded. Nonobstructing herniated small bowel loops through a left anterior lateral abdominal wall defect. Focal small subsegmental gasfield nondilated herniated small intestine lobe, supraumbilical left midline. External Record Review External record reviewed: Inpatient record, Office record and Outpatient record Prescription Management I considered prescription management with: Other Discharge Plan Discharge Clinical Impression: Abnormal weight loss, Colon wall thickening Abdominal pain Qualifiers: Abdominal location: generalized Qualified Code(s): R10.84 - Generalized abdominal pain Patient Disposition: Home, Self-Care Instructions: Abdominal Pain (ED) Additional Instructions: You were evaluated in the emergency department today for abdominal pain, weight loss and nausea. Your labs were reassuring. Your CT scan showed thickening of the wall of your colon which could be due to inflammation. We recommend that you follow-up with general surgery regarding your CT scan results. You were provided with a list of primary care providers as well as the information for the financial counselors while in the emergency department today. Please use these resources to establish care with a primary care provider. Return to the emergency department if you develop worsening pain, fevers, persistent vomiting, inability to pass gas, or any other new or concerning symptoms. CT/CT abdomen pelvis w IV con IMPRESSION: 4 cm segmental wall thickening, rectosigmoid colon. Peristalsis versus inflammatory process. Neoplasm cannot be excluded. Nonobstructing herniated small bowel loops through a left anterior lateral abdominal wall defect. Focal small subsegmental gasfield nondilated herniated small intestine lobe, supraumbilical left midline. Prescriptions: New ondansetron 4 mg tablet,disintegrating 4 mg PO Q8H PRN (Reason: nausea and vomiting) Qty: 10 0RF No Action oxycodone-acetaminophen [Percocet] 5-325 mg tablet 1 - 2 tab PO Q4-6H PRN (Reason: pain) Qty: 30 0RF methadone 10 mg tablet 80 mg PO DAILY Referrals: [facility] [Provider Group, General Surgery] Clinical Impression: Colon wall thickening; Abnormal weight loss; Abdominal pain Print Language: Greek
[2024-12-13 10:20] LABS: MANUAL DIFF FLAG NO
[2024-12-13 10:29] LABS: Basophils Absolute Auto 0.1 X10*3/uL (0.0-0.2); Eosinophils Absolute Auto 0.2 X10*3/uL (0.0-0.4); Imm Gran Abs Auto 0.02 X10*3/uL (0.00-0.03); Imm Gran Pct Auto 0.3 % (0.0-0.4); Lymphocytes Absolute Auto 1.8 X10*3/uL (1.2-4.9); Lymphocytes Percent Auto 30.3 % (20-40); Mean Corpuscular HGB Conc 33.3 g/dl (31.0-36.0); Mean Corpuscular Hemoglobin 31.6 pg (27.0-33.0); Mean Corpuscular Volume 94.9 fL (80.0-98.0); Mean Platelet Volume 9.6 fL (9.4-12.4); Monocytes Absolute Auto 0.4 X10*3/uL (0.1-1.2); Monocytes Percent Auto 6.4 % (2-11); Neutrophils Absolute Auto 3.5 x10*3/uL (2.0-8.3); Platelet Count 263 X10*3/uL (160-400); Red Blood Count 4.11 X10*6/uL (4.60-5.80); Red Cell Distribution Width 13.6 % (11.0-16.0)
[2024-12-13 10:36] LABS: INTERNATIONAL NORM RATIO 1.1 (0.9-1.1); Prothrombin Time 12.4 SEC (10.9-12.4)
[2024-12-13 11:08] LABS: Alanine Aminotransferase 7 U/L (0-40); Albumin Level 3.9 g/dL (3.5-5.0); Alkaline Phosphatase 72 U/L (39-117); Anion Gap 12 (12-20); Aspartate Amino Transferase 17 U/L (5-37); Bilirubin Total 0.5 mg/dL (0.0-1.0); Blood Urea Nitrogen 6 mg/dL (9-16); Carbon Dioxide 27 mmol/L (22-29); Chloride 104 mmol/L (96-108); Creatinine Clr Calc Pharmacy 89.2; Estimated Glomerular Filt Rate > 60; Glucose Random 117 mg/dL (60-115); Lipase 13 U/L (8-78); Magnesium 1.9 mg/dL (1.6-2.6); Potassium 3.9 mmol/L (3.3-5.1); Sodium 139 mmol/L (135-145); Total Protein 6.9 g/dL (6.5-8.0); Triglycerides 55 mg/dL (<150)
[2024-12-13 12:07] VITALS: BP 122/71; PULSE 46; RESP 16; O2SAT 100
[2024-12-13 12:24] LABS: Appearance Urine Clear; Color Urine Yellow; Glucose Urine UA Negative (Negative); Leukocyte Esterase Urine Negative (Negative); Nitrite Urine Negative (Negative); PH 7.5 (5.0-9.0); Specific Gravity - Urine <= 1.005 (1.005-1.025); Urine Blood Negative (Negative); Urine Ketones Negative (Negative); Urine Protein Negative (Neg-Trace)
[2024-12-13] MEDS: iohexoL 350 MG/ML 100 ML INFUS..BTL IV (13:13)
[2024-12-13] MEDS: 0.9 % Sodium Chloride 1,000 ML 999 ML IV (13:14)
[2024-12-13] MEDS: Diatrizoate Meglumine, Sodium 30 ML SOLUTION PO (13:15)
[2024-12-13 15:35] VITALS: BP 122/71; PULSE 46; RESP 16; TEMP 37; O2SAT 100
--- NOTE | 2024-12-15 07:55 | PC.NURSE ---
Back documentation: Pt IVF ended prior to DC of ED, MAR edited to reflect.
== END 2024-12-13 15:36 | disposition home or self-care (01) ==
PROVIDERS: Registered Nurse Emergency; Emergency Provider Emergency Medicine
DX: R10.84 Generalized abdominal pain (principal); R63.4 Abnormal weight loss; Z68.1 Body mass index [BMI] 19.9 or less, adult; F17.210 Nicotine dependence, cigarettes, uncomplicated; F11.20 Opioid dependence, uncomplicated
CPT/HCPCS: 36415; 74177; 80053; 81003; 83690; 83735; 84478; 85025; 85610; 96360; 96361; 99284; Q9967

== ENCOUNTER → 2024-12-13 10:32 | Outpatient (BNV) | payer SELFPAY | PROVIDERS: Emergency Provider Emergency Medicine; Visit Provider Radiology Diagnostic Radiology | DX: K63.89 Other specified diseases of intestine (principal); K42.9 Umbilical hernia without obstruction or gangrene | CPT/HCPCS: 74177 ==